=== PATIENT | male | born 1995 | race Caucasian/White ===

== ENCOUNTER 2019-11-20 01:58 | Inpatient (IN) | payer MEDICAID ==
[~2019-11-20] VITALS: Ht 172.7 cm; Wt 70.8 kg
[2019-11-20] MEDS ORDERED: SODIUM CHLORIDE 0.9% 1,000 ML IV ONE (02:32)
[2019-11-20 04:24] LABS: HEMATOCRIT. 44.2 % (42.0-52.0); HEMOGLOBIN. 15.1 g/dL (14.0-18.0); MEAN CORPUSCULAR HEMOGLOBIN 29.9 pg (28.0-32.0); MEAN CORPUSCULAR VOLUME 87.1 fL (80.0-94.0); MEAN PLATELET VOLUME 9.1 fl (7.4-10.4); PLATELET 211 x1000/uL (130-400); RED BLOOD CELL COUNT 5.07 mill/uL (4.7-6.1); RED CELL DISTRIBUTION WIDTH 12.8 % (11.6-14.6)
[2019-11-20 04:29] LABS: CHLORIDE 107 mEq/L (98-107)
[2019-11-20 04:33] LABS: ETHANOL BLOOD < 10 mg/dL
[2019-11-20] MEDS ORDERED: LEVOFLOXACIN 750MG PREMIX 150 ML IV ONE (05:15)
[2019-11-20] MEDS ORDERED: METRONIDAZOLE 500 MG PREMIX 100 ML IV ONE (05:15)
[2019-11-20 05:51] LABS: PLATELET ESTIMATE NORMAL
[2019-11-20 06:46] LABS: CLARITY URINE CLOUDY (CLEAR); COLOR URINE YELLOW (YELLOW); KETONES URINE 2+ (NEGATIVE); LEUKOCYTE ESTERASE URINE 1+ (NEGATIVE); NITRITE URINE NEGATIVE (NEGATIVE); OCCULT BLOOD URINE NEGATIVE (NEGATIVE); PH URINE 5.5 (4.5-8.0); PROTEIN URINE TRACE (NEGATIVE); SPECIFIC GRAVITY URINE 1.018 (1.005-1.030); UROBILINOGEN URINE 0.2 E.U./dL (0.2-1.0)
[2019-11-20] MEDS ORDERED: ACETAMINOPHEN 325MG TABLET PO PRN (13:00)
[2019-11-20] MEDS ORDERED: METOCLOPRAMIDE HCL 10MG/2ML VIAL IV PRN (13:00)
[2019-11-20] MEDS ORDERED: AZITHROMYCIN 500MG in DEXTROSE 5% WATER 250ML IV NR (13:15)
[2019-11-20] MEDS ORDERED: PIPERACILLIN SODIUM/TAZOBACTAM 4.5 G in DEXT 5% WATER 100 ML IV NR (14:00)
[2019-11-20 19:28] VITALS: BP 116/76
[2019-11-20 20:00] VITALS: BP_SYST 111; BP_SYST 119; BP_DIAS 67; BP_DIAS 69
[2019-11-20] MEDS ORDERED: ENOXAPARIN 40MG/0.4ML SYR SUBCUT SCH (21:00)
[2019-11-20] MEDS: PIPERACILLIN SODIUM/TAZOBACTAM 4.5 G in DEXT 5% WATER 100 ML IV SCH (22:20)
[2019-11-21] VITALS: BP 116/70
[2019-11-21] MEDS: PIPERACILLIN SODIUM/TAZOBACTAM 4.5 G in DEXT 5% WATER 100 ML IV SCH ×2 (03:21→08:48)
[2019-11-21 03:29] VITALS: BP 108/62
[2019-11-21 05:09] LABS: CHLORIDE 103 mEq/L (98-107)
[2019-11-21 05:45] LABS: BASOPHILS % 0.6 % (0.0-2.0); EOSINOPHILS % 3.8 % (0.0-5.0); HEMOGLOBIN. 14.5 g/dL (14.0-18.0); LYMPHOCYTES % 23.2 % (20.0-50.0); MEAN CORPUSCULAR HEMOGLOBIN 30.2 pg (28.0-32.0); MEAN CORPUSCULAR VOLUME 87.7 fL (80.0-94.0); MEAN PLATELET VOLUME 9.5 fl (7.4-10.4); MONOCYTES % 9.2 % (2.0-8.0); NEUTROPHILS % 63.2 % (40.0-76.0); PLATELET 228 x1000/uL (130-400); RED BLOOD CELL COUNT 4.79 mill/uL (4.7-6.1); RED CELL DISTRIBUTION WIDTH 13.2 % (11.6-14.6)
[2019-11-21 08:00] VITALS: BP 110/62
[2019-11-21] MEDS ORDERED: LEVO750T21 MT (09:00)
[2019-11-21] MEDS ORDERED: BENZ1TAB7 PO (10:17)
[2019-11-21] MEDS ORDERED: ABIL10 PO (10:17)
[2019-11-21 13:25] LABS: *AMPHETAMINES SCREEN URINE NEGATIVE (NEGATIVE); *BARBITURATES SCREEN URINE NEGATIVE (NEGATIVE); *BENZODIAZEPINES SCREEN URINE NEGATIVE (NEGATIVE); *COCAINE SCREEN URINE PRESUMTIVE POSITIVE (NEGATIVE); CANNABINOID URINE SCREEN PRESUMTIVE POSITIVE (NEGATIVE); PHENCYCLIDINE URINE SCREEN NEGATIVE (NEGATIVE)
[2019-11-21 13:26] LABS: METHADONE URINE SCREEN NEGATIVE (NEGATIVE); OPIATES URINE SCREEN NEGATIVE (NEGATIVE)
[2019-11-21] MEDS ORDERED: AZITHROMYCIN 250 MG in DEXT 5% WATER 250 ML IV SCH (14:00)
== END 2019-11-21 13:46 | disposition left against medical advice (07) | DRG 720 ==
LOC: ER 01:58 → ENRESERV 14:01 → 7EST 18:25 → 6WST 11-21 12:30
PROVIDERS: ADMIT Internal Medicine; ATTEND Internal Medicine
DX: A41.9 Sepsis, unspecified organism (principal); J96.00 Acute respiratory failure, unspecified whether with hypoxia or hypercapnia; J69.0 Pneumonitis due to inhalation of food and vomit; G92 Toxic encephalopathy; F17.210 Nicotine dependence, cigarettes, uncomplicated; T40.4X1A Poisoning by other synthetic narcotics, accidental (unintentional), initial encounter; N39.0 Urinary tract infection, site not specified; Z20.828 Contact with and (suspected) exposure to other viral communicable diseases; F12.10 Cannabis abuse, uncomplicated; R45.851 Suicidal ideations; F11.11 Opioid abuse, in remission; Y92.89 Other specified places as the place of occurrence of the external cause; Z88.8 Allergy status to other drugs, medicaments and biological substances; Z79.899 Other long term (current) drug therapy
CPT/HCPCS: 36415; 71045; 80048; 80053; 80305; 80320; 81003; 82728; 83605; 83615; 85025; 85379; 87635; 93005; 96365; 99285; J0456; J1956; J2543; J3490; J7030; J7060; G0480